=== PATIENT | male | born 1985 | race Caucasian/White ===

== ENCOUNTER 2023-08-08 22:55 | Emergency (ER) | payer BC, SELFPAY ==
[2023-08-08 22:55] VITALS: BMI 31.7
[2023-08-08 22:59] VITALS: BP 163/100
[2023-08-09] MEDS: DECADRON 10 MG IV (02:03)
[2023-08-09] MEDS: TORADOL 15 MG IV (02:04)
[2023-08-09] MEDS: NSS 500 IV (02:05)
[2023-08-09 02:20] LABS: % Basophils 0.2 % (0-2); % Immature Granulocytes 0.5 % (0-0.5); % Lymphocytes 11.1 % (20.5-51.1); % Monocytes 10.2 % (1.7-9.3); Absolute Immature Granulocytes 0.1 10^3/uL (0-0.05); Absolute Lymphocytes 1.4 10^3/uL (1.2-3.4); Absolute Monocytes 1.3 10^3/uL (0.1-0.6); Absolute Neutrophils 9.6 10^3/uL (1.4-6.5); Hematocrit 42.1 % (39.0-52.0); Hemoglobin 15.3 g/dL (13.0-18.0); Mean Corp Hgb Conc. 36.3 g/dL (33.0-37.0); Mean Corpuscular Hgb 30.4 pg (27.0-31.0); Mean Corpuscular Volume 83.5 fL (80.0-94.0); Mean Platelet Volume 10.2 fL (7.4-10.4); Nucleated Red Blood Cells % 0 % (-); Platelet Count 194 10^3/uL (130-400); Red Blood Cell Count 5.04 10^6/uL (4.70-6.10); Red Cell Dist. Width 12.1 % (11.5-14.5); White Blood Cell Count 12.3 10^3/uL (4.8-10.8)
[2023-08-09 02:33] LABS: Blood Urea Nitrogen 20 mg/dl (9-20); Calcium 9.7 mg/dl (8.4-10.2); Carbon Dioxide 23 mmol/L (22-30); Chloride 102 mmol/L (98-107); Estimated Creatinine Clearance > 125 ml/min; Glucose 107 mg/dl (70-99); Potassium 4.3 mmol/L (3.5-5.1); Sodium 137 mmol/L (135-145); eGFR > 60.00
--- NOTE | 2023-08-09 02:41 | ED.GENMED ---
History of Present Illness
<Pedro Mahoney MD - Last Filed: 08/09/23 02:44>
General
Chief Complaint: Throat Problem
Source: patient
Exam Limitations: none
Time Seen by Provider: 08/09/23 01:12
Nursing documentation reviewed up to this point in time: agreed with
Travel History
Have you had any contact with someone who has COVID-19?: No
Do you have any symptoms of coronavirus? Fever > 100 degrees, chills, cough, shortness of breath, sore throat, loss of taste or smell, muscle aches, or headache?: No
History of Present Illness
History of Present Illness:
Patient presents to ED secondary to worsening throat pain along with right-sided neck swelling over the past 4 days. Patient was evaluated by his primary care physician 2 days ago when he received negative strep test. Since then, patient states
that his symptoms have worsened. However, denies loss of appetite. Denies nausea or vomiting. Denies diarrhea. Denies difficulty with swallowing. Denies headache. Denies fever or chills. Denies sick contact.
Review of Systems
<Pedro Mahoney MD - Last Filed: 08/09/23 02:44>
Review of Systems
Allergies reviewed?: Yes
All Other Systems: ROS reviewed and negative except as documented in HPI and ROS
Constitutional: Reports no symptoms; Denies fever or chills
EENT: Reports sore throat
Respiratory: Reports no symptoms; Denies cough
ABD/GI: Reports no symptoms; Denies nausea or vomiting
Skin: Reports no symptoms
Neurological: Reports no symptoms
Phy Exam
<Pedro Mahoney MD - Last Filed: 08/09/23 02:44>
Physical Exam
Physical Exam:
Physical Exam
General: mild distress, not acutely ill. afebrile.
Head: nc/at. eomi
Neck: supple. no meningeal signs. normal uvula. mild right tonsillar swelling noted. mild right anterior cervical lymphadenopathy noted.
Heart: s1/s2 regular rate and rhythm, no murmur. equal radial pulses.
Lungs: no acute respiratory distress. clear bilaterally
Abdomen: normal bowel sounds. not tender.
Neuro: alert and oriented. no focal neurological deficits
Skin: no rash
Psychiatric: well kept. interactive and cooperative
Extremities: no edema. no calf tenderness.
Course
<Pedro Mahoney MD - Last Filed: 08/09/23 02:44>
Orders/Labs/Results
Orders:
Orders
08/09/23 01:50
CT Neck With Iv Contrast Urgent
Comment:
Reason For Exam: right neck pain with swelling
0.9% Sodium Chloride 500 ml [Nss] 500 ml IV BOLUS
Dexamethasone Sod Phosphate [Decadron] 10 mg IV NOW STA
Ketorolac [Toradol] 15 mg IV NOW STA
08/09/23 02:08
Basic Metabolic Panel Urgent
Complete Blood Count/With Diff Urgent
Rapid Strep Group A Urgent
RUTH Source: Throat/Pharynx
Specimen Description:
Date Specimen was Collected: 08/09/23
Time Specimen was Collected: 02:07
08/09/23 03:43
Clindamycin 600 mg/50 ml [Cleocin] 600 mg in 50 ml IV NOW
Abnormal Lab Results
08/09/23
02:08
WBC 12.3 H 10^3/uL
(4.8-10.8)
Abs Immat Gran (auto) 0.1 H 10^3/uL
(0-0.05)
Absolute Neuts (auto) 9.6 H 10^3/uL
(1.4-6.5)
Absolute Monos (auto) 1.3 H 10^3/uL
(0.1-0.6)
Neutrophils % 78.0 H %
(42.2-75.2)
Lymphocytes % 11.1 L %
(20.5-51.1)
Monocytes % 10.2 H %
(1.7-9.3)
Glucose 107 H mg/dl
(70-99)
08/09/23 02:08
08/09/23 02:08
Vital Signs
Initial and Last Documented VS:
Initial Vital Signs
Temp Pulse Resp BP Pulse Ox
99.1 F 100 18 163/100 99
08/08/23 22:59 08/08/23 22:59 08/08/23 22:59 08/08/23 22:59 08/08/23 22:59
Last Documented Vital Signs
Temp Pulse Resp BP Pulse Ox
98.6 F 85 16 177/74 100
08/09/23 04:54 08/09/23 04:54 08/09/23 04:54 08/09/23 04:54 08/09/23 04:54
<Debbie Perkins, DO - Last Filed: 08/09/23 05:04>
Orders/Labs/Results
Orders:
Orders
08/09/23 01:50
CT Neck With Iv Contrast Urgent
Comment:
Reason For Exam: right neck pain with swelling
0.9% Sodium Chloride 500 ml [Nss] 500 ml IV BOLUS
Dexamethasone Sod Phosphate [Decadron] 10 mg IV NOW STA
Ketorolac [Toradol] 15 mg IV NOW STA
08/09/23 02:08
Basic Metabolic Panel Urgent
Complete Blood Count/With Diff Urgent
Rapid Strep Group A Urgent
RUTH Source: Throat/Pharynx
Specimen Description:
Date Specimen was Collected: 08/09/23
Time Specimen was Collected: 02:07
08/09/23 03:43
Clindamycin 600 mg/50 ml [Cleocin] 600 mg in 50 ml IV NOW
Abnormal Lab Results
08/09/23
02:08
WBC 12.3 H 10^3/uL
(4.8-10.8)
Abs Immat Gran (auto) 0.1 H 10^3/uL
(0-0.05)
Absolute Neuts (auto) 9.6 H 10^3/uL
(1.4-6.5)
Absolute Monos (auto) 1.3 H 10^3/uL
(0.1-0.6)
Neutrophils % 78.0 H %
(42.2-75.2)
Lymphocytes % 11.1 L %
(20.5-51.1)
Monocytes % 10.2 H %
(1.7-9.3)
Glucose 107 H mg/dl
(70-99)
08/09/23 02:08
08/09/23 02:08
Vital Signs
Initial and Last Documented VS:
Initial Vital Signs
Temp Pulse Resp BP Pulse Ox
99.1 F 100 18 163/100 99
08/08/23 22:59 08/08/23 22:59 08/08/23 22:59 08/08/23 22:59 08/08/23 22:59
Last Documented Vital Signs
Temp Pulse Resp BP Pulse Ox
98.6 F 85 16 177/74 100
08/09/23 04:54 08/09/23 04:54 08/09/23 04:54 08/09/23 04:54 08/09/23 04:54
<Pedro Mahoney MD - Last Filed: 08/09/23 02:44>
MDM/Problems Addressed
MDM/Problems Addressed:
Rapid strep negative. CT neck pending.
<Debbie Perkins DO - Last Filed: 08/09/23 05:04>
*Radiology
Radiology exam reviewed: radiology read reviewed
*Pulse Oximetry
Patient hypoxic: no
*Critical Care Note
Total Time (30-74mins, 75-104mins- exclusive of procedures): Not Applicable
<Debbie Perkins DO - Last Filed: 08/09/23 05:04>
Update Note
Update Note:
08/09/2023 0459 AM
Patient feeling markedly improved after IV fluids, IV steroids and IV clindamycin. No further stridor. Handling secretions well.
Speech is clear.
CAT scan shows acute pharyngitis, tonsillitis and supraglottitis without abscess. Associated oral pharyngeal airway narrowing.
Patient overall feeling markedly improved. He has been offered hospitalization versus discharge to home and he is eager to be discharged to home.
Will plan for a course of oral clindamycin as well as short course of oral steroids.
Discussed importance of staying well-hydrated and to limit his diet to clear liquids over the next 24 hours, slowly advance to soft foods as tolerated.
Continue to keep head elevated.
Prompt return precautions discussed.
ED Attending Note
<Pedro Mahoney MD - Last Filed: 08/09/23 02:44>
-
Portions of this chart may have been created with voice recognition software.� Occasional wrong word or��sound alike� substitutions may have occurred due to the inherent limitations of voice recognition software.
Discharge Plan
Departure
Patient Disposition: Home (Routine Discharge)
Date of Disposition: 08/09/23
Time of Disposition: 05:01
Patient with high blood pressure during this ER visit?: Yes
Condition: Good
Discharge Problem:
acute pharyngitis and tonsillitis
Instructions: Sore Throat, Adult ED
Prescriptions:
New
prednisone 50 mg tablet
50 mg PO DAILY Qty: 5 0RF
clindamycin HCl 300 mg capsule
300 mg PO QID Qty: 28 0RF
Referrals:
Jeannine Bailon [Family Provider] - Call in 1-3 days for appt
Interventions
Interventions:
*Risk Screen - Suicide Last Done: 08/08/23 22:59
*General Assessment Last Done: 08/08/23 22:59
*Neglect/Abuse Screening Last Done: 08/08/23 22:59
ED- Fall Risk Assessment Last Done: 08/09/23 02:12
ED-EENT Assessment Last Done: 08/09/23 02:12
ED- Pulmonary Assessment Last Done: 08/09/23 02:12
Discharge Date and Time
Print Language: TELUGU
[2023-08-09 03:19] VITALS: BP 151/89
[2023-08-09] MEDS: CLEOCIN 50 IV (03:47)
[2023-08-09 04:54] VITALS: BP 177/74
== END 2023-08-09 05:15 | disposition home or self-care (01) ==
LOC: EMR 22:55
PROVIDERS: EMERGENCY PHYSICIAN Emergency Medicine; FAMILY PHYSICIAN Nurse Practitioner
DX: J02.9 Acute pharyngitis, unspecified (principal); J03.90 Acute tonsillitis, unspecified; R22.1 Localized swelling, mass and lump, neck; R03.0 Elevated blood-pressure reading, without diagnosis of hypertension; J45.909 Unspecified asthma, uncomplicated; Z88.0 Allergy status to penicillin
CPT/HCPCS: 99285; 96365; 96375 ×2; 70491; 80048; 85025; 87070; 87880; Q9967

== ENCOUNTER 2023-08-10 13:39 | Emergency (ER) | payer BC, SELFPAY ==
[2023-08-10 13:41] VITALS: BP 159/107
[2023-08-10] MEDS: TORADOL 15 MG IV (15:03)
[2023-08-10] MEDS: DECADRON 6 MG IV (15:05)
[2023-08-10] MEDS: NSS 1000 IV (15:06)
[2023-08-10 15:07] LABS: % Basophils 0.1 % (0-2); % Immature Granulocytes 0.7 % (0-0.5); % Lymphocytes 5.3 % (20.5-51.1); % Monocytes 9.5 % (1.7-9.3); % Neutrophils 84.4 % (42.2-75.2); Absolute Immature Granulocytes 0.1 10^3/uL (0-0.05); Absolute Lymphocytes 0.7 10^3/uL (1.2-3.4); Absolute Monocytes 1.2 10^3/uL (0.1-0.6); Absolute Neutrophils 10.6 10^3/uL (1.4-6.5); Hematocrit 41.1 % (39.0-52.0); Hemoglobin 14.7 g/dL (13.0-18.0); Mean Corp Hgb Conc. 35.8 g/dL (33.0-37.0); Mean Corpuscular Hgb 30.3 pg (27.0-31.0); Mean Corpuscular Volume 84.7 fL (80.0-94.0); Mean Platelet Volume 10.2 fL (7.4-10.4); Nucleated Red Blood Cells % 0 % (-); Platelet Count 212 10^3/uL (130-400); Red Blood Cell Count 4.85 10^6/uL (4.70-6.10); Red Cell Dist. Width 12.1 % (11.5-14.5); White Blood Cell Count 12.6 10^3/uL (4.8-10.8)
[2023-08-10 15:32] LABS: Blood Urea Nitrogen 25 mg/dl (9-20); Calcium 9.7 mg/dl (8.4-10.2); Carbon Dioxide 26 mmol/L (22-30); Chloride 99 mmol/L (98-107); Glucose 122 mg/dl (70-99); Magnesium 2.1 mg/dl (1.6-2.3); Potassium 4.9 mmol/L (3.5-5.1); Sodium 137 mmol/L (135-145); eGFR > 60.00
--- NOTE | 2023-08-10 18:30 | ED.GENMED ---
History of Present Illness
General
Chief Complaint: Throat Problem
Source: patient
Exam Limitations: none
Time Seen by Provider: 08/10/23 14:36
Nursing documentation reviewed up to this point in time: agreed with
Travel History
Have you had any contact with someone who has COVID-19?: No
Do you have any symptoms of coronavirus? Fever > 100 degrees, chills, cough, shortness of breath, sore throat, loss of taste or smell, muscle aches, or headache?: No
History of Present Illness
History of Present Illness:
Patient diagnosed with acute tonsillitis 2 days ago in ED and started on prednisone along with clindamycin, presents to ED secondary to continual throat pain, which has made it difficult for patient to eat or drink fluids. Denies fever or chills.
Denies nausea or vomiting. Denies shortness of breath. Denies difficulty with swallowing. Denies dizziness or weakness. Denies headache.
Review of Systems
Review of Systems
Allergies reviewed?: Yes
All Other Systems: ROS reviewed and negative except as documented in HPI and ROS
Constitutional: Reports no symptoms; Denies fever
EENT: Reports sore throat
Respiratory: Reports no symptoms; Denies trouble breathing
Cardiac: Reports no symptoms
ABD/GI: Reports no symptoms; Denies vomiting or diarrhea
: Reports no symptoms
Musculoskeletal: Reports no symptoms
Skin: Reports no symptoms
Neurological: Reports no symptoms; Denies dizzy or headache
Phy Exam
Physical Exam
Physical Exam:
Physical Exam
General: mild painful distress, not acutely ill. afebrile.
Head: nc/at. eomi
Neck: supple. no meningeal signs. mild tonsillar swelling noted. no lymphadenopathy.
Heart: s1/s2 regular rate and rhythm, no murmur. equal radial pulses.
Lungs: no acute respiratory distress. clear bilaterally
Abdomen: normal bowel sounds. not tender.
Neuro: alert and oriented. no focal neurological deficits
Skin: no rash
Psychiatric: well kept. interactive and cooperative
Extremities: no edema. no calf tenderness.
Course
Orders/Labs/Results
Orders:
Orders
08/10/23 14:47
Dexamethasone Sod Phosphate [Decadron] 6 mg IV NOW STA
Ketorolac [Toradol] 15 mg IV NOW STA
08/10/23 14:48
0.9% Sodium Chloride 1000 ml [Nss] 1,000 ml IV BOLUS
08/10/23 14:58
Basic Metabolic Panel Urgent
Complete Blood Count/With Diff Urgent
Magnesium Urgent
Abnormal Lab Results
08/10/23
14:58
WBC 12.6 H 10^3/uL
(4.8-10.8)
Abs Immat Gran (auto) 0.1 H 10^3/uL
(0-0.05)
Absolute Neuts (auto) 10.6 H 10^3/uL
(1.4-6.5)
Absolute Lymphs (auto) 0.7 L 10^3/uL
(1.2-3.4)
Absolute Monos (auto) 1.2 H 10^3/uL
(0.1-0.6)
Immature Gran % 0.7 H %
(0-0.5)
Neutrophils % 84.4 H %
(42.2-75.2)
Lymphocytes % 5.3 L %
(20.5-51.1)
Monocytes % 9.5 H %
(1.7-9.3)
BUN 25 H mg/dl
(9-20)
Glucose 122 H mg/dl
(70-99)
08/10/23 14:58
08/10/23 14:58
Vital Signs
Initial and Last Documented VS:
Initial Vital Signs
Temp Pulse Resp BP Pulse Ox
98.9 F 87 18 159/107 98
08/10/23 13:41 08/10/23 13:41 08/10/23 13:41 08/10/23 13:41 08/10/23 13:41
Last Documented Vital Signs
Temp Pulse Resp BP Pulse Ox
98.9 F 87 18 159/107 98
08/10/23 13:41 08/10/23 13:41 08/10/23 13:41 08/10/23 13:41 08/10/23 13:41
MDM/Problems Addressed
MDM/Problems Addressed:
Patient reports significant improvement symptoms after treatment and remains hemodynamically stable during observation. Discussed treatment options with the patient, including observation overnight for symptomatic treatment. However, with
improvement and being able to drink in ED with minimal difficulty, patient feels comfortable going home at this time. Patient will continue already prescribed medications, but will be given ENT physician follow-up as an outpatient next week.
*Critical Care Note
Total Time (30-74mins, 75-104mins- exclusive of procedures): Not Applicable
ED Attending Note
-
Portions of this chart may have been created with voice recognition software.� Occasional wrong word or��sound alike� substitutions may have occurred due to the inherent limitations of voice recognition software.
Discharge Plan
Departure
Patient Disposition: Home (Routine Discharge)
Date of Disposition: 08/10/23
Time of Disposition: 18:30
Patient with high blood pressure during this ER visit?: Yes
Discharge Problem:
Acute tonsillitis
Instructions: Sore throat in adults
Prescriptions:
New
ketorolac 10 mg tablet
10 mg PO Q8H PRN (Reason: Pain) Qty: 14 0RF
Rx Instructions:
maximum total duration of 5 days from all oral, intranasal, or parenteral formulations
No Action
prednisone 50 mg tablet
50 mg PO DAILY Qty: 5 0RF
clindamycin HCl 300 mg capsule
300 mg PO QID Qty: 28 0RF
Referrals:
Mariel Bailon CRNP [Family Provider] -
Maria Del Rosario Alexander MD [Active] -
Activity Restrictions/Additional Instructions:
As discussed, please follow-up with your primary care physician and/or referred to ENT physician for further evaluation treatment. Your prescription has been sent electronically to [facility] pharmacy in [place].
Interventions
Interventions:
*Risk Screen - Suicide Last Done: 08/10/23 13:41
*General Assessment Last Done: 08/10/23 13:41
*Neglect/Abuse Screening Last Done: 08/10/23 13:41
*Nursing Disposition Last Done: 08/10/23 18:46
ED-EENT Assessment Last Done: 08/10/23 18:46
ED- Pulmonary Assessment Last Done: 08/10/23 18:46
Discharge Date and Time
Discharge Date/Time: 08/10/23 18:46
Print Language: FRISIAN
== END 2023-08-10 18:46 | disposition home or self-care (01) ==
LOC: EMR 13:39
PROVIDERS: EMERGENCY PHYSICIAN Emergency Medicine; FAMILY PHYSICIAN Nurse Practitioner
DX: J03.90 Acute tonsillitis, unspecified (principal); R03.0 Elevated blood-pressure reading, without diagnosis of hypertension
CPT/HCPCS: 99284; 96374; 96375; 96361; 80048; 83735; 85025

== ENCOUNTER → 2024-07-18 12:46 | Outpatient (REF) | payer BC, SELFPAY | LOC: HWRCS 12:46 | DX: E78.2 Mixed hyperlipidemia (principal) | CPT/HCPCS: 93306 ==